=== PATIENT | male | born 1965 ===

== ENCOUNTER 2017-11-24 14:01 | Inpatient (IN) | payer MEDICAID ==
[2017-11-24 14:06] VITALS: BMI 29.8
[2017-11-24 14:41] LABS: BASO # 0.1 K/uL (0.0-0.2); BASO % 0.8 % (0.0-2.0); EOS % 0.3 % (0.0-4.0); HEMOGLOBIN 13.9 g/dL (12.0-18.0); LYMPH # 1.6 K/uL (1.0-4.3); LYMPH % 22.7 % (20.0-40.0); MEAN CELL VOLUME 87.2 fL (80.0-94.0); MEAN CORPUSCULAR HEMOGLOBIN 30.5 pg (27.0-31.0); MEAN PLATELET VOLUME 8.9 fL (7.2-11.7); MONO # 0.5 K/uL (0.0-0.8); MONO % 6.7 % (0.0-10.0); NEUT % 69.5 % (50.0-75.0); RBC 4.55 Mil/uL (4.40-5.90); RED CELL DISTRIBUTION WIDTH 13.7 % (11.5-14.5); WHITE BLOOD COUNT 7.1 K/uL (4.8-10.8)
[2017-11-24 14:48] LABS: ALB/GLOB RATIO 1.3 (1.0-2.1); ALBUMIN 3.8 g/dL (3.5-5.0); ALT/SGPT 109 U/L (21-72); AST/SGOT 128 U/L (17-59); BLOOD UREA NITROGEN 13 mg/dL (9-20); CALCIUM 7.9 mg/dl (8.6-10.4); GFR AFRICAN-AMERICAN > 60; GFR NON-AFRICAN AMERICAN > 60
[2017-11-24 15:37] LABS: URINE BILIRUBIN NEGATIVE (NEGATIVE); URINE BLOOD 1+ (NEGATIVE); URINE CLARITY Clear (Clear); URINE COLOR Straw (YELLOW); URINE GLUCOSE (UA) NORMAL (Normal); URINE LEUKOCYTE ESTERASE NEG Leu/uL (Negative); URINE NITRATE NEGATIVE (NEGATIVE); URINE PROTEIN NEGATIVE (NEGATIVE); URINE UROBILINOGEN NORMAL mg/dL (0.2-1.0)
[2017-11-24 15:45] LABS: ACETAMINOPHEN < 10.0 ug/mL (10.0-30.0); SALICYLATE < 1.0 mg/dL 1
[2017-11-24 15:56] LABS: BARBITURATES, UR NEGATIVE (NEGATIVE); BENZODIAZEPINES, UR NEGATIVE (NEGATIVE); OPIATES, UR NEGATIVE (NEGATIVE); PHENCYCLIDINE, UR NEGATIVE (NEGATIVE)
--- NOTE | 2017-11-24 17:04 | C.PDOC ---
History Of Present Illness 51 year old male is brought to the ED by EMS for public intoxication. Patient admits to alcohol, heroin, and crack use today. Patient is verbally abusive responds appropriately to painful stimulus. Patient does not have any signs or trauma. Time Seen by Provider: 11/24/17 15:18 Chief Complaint (Nursing): Psychiatric Evaluation History Per: Patient, EMS History/Exam Limitations: no limitations Onset/Duration Of Symptoms: Days Current Symptoms Are (Timing): Still Present Suicide/Self Injury Attempted (Context): None Modifying Factor(s): Alcohol, Other (Heroin) Associated Symptoms: Depression, Suicidal Thoughts, Suicidal Plan Involuntary Hold By: None Recent travel outside of the [place]: No Additional History Per: Patient, EMS Past Medical History Reviewed: Historical Data, Nursing Documentation, Vital Signs Vital Signs: Last Vital Signs Temp 98.8 F 11/24/17 14:06 Pulse 100 H 11/24/17 18:47 Resp 18 11/24/17 18:47 BP 111/57 L 11/24/17 18:47 Pulse Ox 100 11/24/17 18:47 - Medical History PMH: No Chronic Diseases Surgical History: No Surg Hx Family History: States: Unknown Family Hx - Social History Hx Alcohol Use: Yes Hx Substance Use: Yes ("HEROIN AND CRACK") - Immunization History Hx Tetanus Toxoid Vaccination: No Hx Influenza Vaccination: No Hx Pneumococcal Vaccination: No Review Of Systems Constitutional: Negative for: Fever, Chills Cardiovascular: Negative for: Chest Pain, Palpitations Respiratory: Negative for: Cough, Shortness of Breath Gastrointestinal: Negative for: Nausea, Vomiting, Abdominal Pain Skin: Negative for: Rash Neurological: Negative for: Weakness, Numbness Psych: Positive for: Depression, Suicidal ideation Physical Exam - Physical Exam Appears: Non-toxic, Combative, Other (Obese, white jessenia) Skin: Normal Color, Warm, Dry Head: Atraumatic, Normacephalic Eye(s): bilateral: Normal Inspection Nose: No Discharge, No Deformity Oral Mucosa: Moist Neck: Normal ROM, Supple Chest: Symmetrical Cardiovascular: Rhythm Regular, No Murmur Respiratory: Normal Breath Sounds, No Rales, No Rhonchi, No Wheezing Gastrointestinal/Abdominal: Soft, No Tenderness, No Guarding, No Rebound Extremity: Normal ROM, No Deformity, No Swelling Neurological/Psych: Oriented x3, Normal Speech, Normal Cognition Gait: Steady ED Course And Treatment - Laboratory Results Result Diagrams: 11/24/17 14:30 11/24/17 14:30 O2 Sat by Pulse Oximetry: 96 (On RA) Pulse Ox Interpretation: Normal Medical Decision Making Medical Decision Making: Impression : Public intoxication Plan: * Labs * UA * EKG pt retracts all suicidal ideation, denies other substance abuse aside from alcohol. d/w Crisis, ok to Detox. Disposition Doctor Will See Patient In The: Hospital Counseled Patient/Family Regarding: Studies Performed, Diagnosis - Disposition Disposition: HOSPITALIZED Disposition Time: 21:02 Condition: GOOD Forms: [facility] (Romanian) - Clinical Impression Clinical Impression: Alcohol abuse - Scribe Statement The provider has reviewed the documentation as recorded by the Scribe Daniel Meyer All medical record entries made by the Scribe were at my direction and personally dictated by me. I have reviewed the chart and agree that the record accurately reflects my personal performance of the history, physical exam, medical decision making, and the department course for this patient. I have also personally directed, reviewed, and agree with the discharge instructions and disposition.
[2017-11-24] MEDS ORDERED: Potassium Chloride 20 mEq/15 ml LIQ UD PO ONE (21:48)
[2017-11-25] MEDS: Multiple Vitamins Tab PO SCH (10:05)
--- NOTE | 2017-11-25 12:17 | CARD ---
APPROVED REPORT EKG Measurement Heart [id number] <Conclusion> Normal sinus rhythm Normal ECG
[2017-11-25] MEDS ORDERED: Benzocaine/Menthol (Cepacol) Lozenge MT PRN (14:40)
--- NOTE | 2017-11-25 14:51 | PCM.PSYCH ---
Initial Psychiatric Evaluation - Initial Psychiatric Evaluation Type of Admission: Voluntary Chief Complaint (in patient's own words): alcohol intoxication Patient's Reaction to Hospitalization: 51 year old Male brought to the ED for alcohol intoxication, admitted for alcohol detox. Patient is currently homeless due to recently undergoing a divorce. 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 In August he went back to visit his father in [place] who was recently diagnosed with Cancer. Upon arrival back, 3 weeks later, his did not allow him back in the house. He does not have any form of ID, clothing, or any personal belongings. He has been living in hotels the past 1-2 months. Patient reports he used to drink alcohol from his teen years up until the age of early thirties. He has remained sober for the past 20 years. In recent events, due to all the adversity the patient has been experiencing he relapsed and returned to drinking alcohol. Admitted to 1 bottle/ 1 L of hard liquor since he returned from [place] in August 2017. Admitted to nausea, tremors and seizures when he does not drink. His seizures have been unwitnessed due to occurring inside his hotel room. He reports standing and walking up on the floor, denied urinary or bowel incontinence, or tongue biting. Reported smoking 3-4 cigarettes a day accompanied with the alcohol he drinks daily. Past Medical History: Admitted to Hypertension, not currently on medication Past Psychiatric History: Alcohol Use Disorder Family History: Denied Current Medications: Active Medications Generic Name Dose Route Start Last Admin Trade Name Freq PRN Reason Stop Dose Admin Al Hydrox/Mg Hydrox/Simethicone 30 ml 11/24/17 22:59 Maalox 30 Ml PO TID PRN Indigestion / Heartburn Benzocaine/Menthol 1 ramiro 11/25/17 14:40 Cepacol Sore Throat MT Q4 PRN Sore Throat Clonidine HCl 0.1 mg 11/24/17 22:58 Catapres PO Q4H PRN Symptoms of alcohol withdrawl Folic Acid 1 mg 11/25/17 10:00 11/25/17 10:05 Folic Acid PO 1 mg DAILY MIGUE Administration Gabapentin 300 mg 11/25/17 10:00 11/25/17 10:22 Neurontin PO 300 mg BID MIGUE Administration Lorazepam 1 mg 11/24/17 22:58 Ativan PO Q4H PRN Symptoms of alcohol withdrawl Lorazepam 1 mg 11/24/17 23:00 11/25/17 14:13 Ativan PO 11/29/17 22:59 1 mg Q4H MIGUE Administration Taper Multivitamins 1 tab 11/25/17 10:00 11/25/17 10:05 Hexavitamin PO 1 tab DAILY MIGUE Administration Ondansetron HCl 4 mg 11/24/17 22:59 Zofran Tab PO Q8 PRN Nausea/Vomiting Thiamine HCl 100 mg 11/25/17 10:00 11/25/17 10:05 Vitamin B1 Tab PO 100 mg DAILY MIGUE Administration Trazodone HCl 50 mg 11/24/17 22:58 11/24/17 23:35 Desyrel PO 50 mg HS PRN Administration Insomnia Past Psychiatric History - Past Psychiatric History Pertinent Medical Hx (Current Medical&Sleep Prob, Allergies): Allergies Allergy/AdvReac Type Severity Reaction Status Date / Time No Known Allergies Allergy Unverified 11/24/17 14:05 Unobtainable 11/24/17 Review of Systems - Review of Systems All systems: reviewed and no additional remarkable complaints except - Psychiatric Psychiatric: Anxiety, Change in Appetite, Depression, Difficulty Concentrating, Hopelessness, Suicidal Ideation. absent: Auditory Hallucinations, Hallucinations, Homicidal Ideation, Irritability, Mood Swings, Visual Hallucinations, Tactile Hallucinations Mental Status Examination - Personal Presentation Personal Presentation: Looks stated age - Affect Affect: Depressed - Motor Activity Motor Activity: Calm - Reliability in Providing Information Reliability in Providing Information: Fair - Mood Mood: Depressed - Obsessions/Compulsions Obsessions: No Compulsions: No - Cognitive Functions Orientation: Person, Place, Situation, Time Judgement: Imparied, as evidence by: Poor judgement, Intact, as evidence by: Insight regarding need for hospitalization - Risk Risk: Suicidal - Limitations Limitations: Living alone DSM 5 DX - DSM 5 DSM 5 Diagnosis: Alcohol Use Disorder Alcohol Withdrawal Tobacco Use Disorder 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 - Recommended/Plan of Treatment Treatment Recommendations and Plan of Treatment: Alcohol use disorder, severe -CBT -Psychoeducation -Supportive therapy, individual therapy -Use CA for abstinence Alcohol withdrawal, uncomplicated -CBT -Psychoeducation -Supportive therapy, individual therapy -Librium when necessary -Start Librium taper -Start folic acid/thiamine/multivitamin Tobacco Use Disorder -Smoking Cessation -CBT -Psychoeducation -Supportive therapy, individual therapy -Use CA for abstinence 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 Buckley, Josefina Arnold DO, PGY-1
[2017-11-25] MEDS: Aluminum Hydroxide/Magnesium Hydroxide Susp (30 mL) PO PRN (18:57)
[2017-11-26] MEDS: Multiple Vitamins Tab PO SCH (10:45)
[2017-11-26] MEDS: Aluminum Hydroxide/Magnesium Hydroxide Susp (30 mL) PO PRN (22:26)
[2017-11-27] MEDS: Multiple Vitamins Tab PO SCH (09:08)
--- NOTE | 2017-11-27 15:16 | PCM.PYCHPN ---
Psychiatric Progress Note - Psychiatric Progress Note Patient seen today, length of contact: 18 min Patient Chief Complaint: "I need to go home soon" Problems Identified/Issues Discussed: The pt is seen, chart reviewed, case discussed with staff. The pt is compliant with medications and reports no side-effects. Symptoms are improving but needs more time to stabilize. After care discussed, support and psychoeducation given. He agreed to complete his detox Medication Change: Yes Medical Record Reviewed: Yes Mental Status Examination - Cognitive Function Orientation: Person, Place, Situation, Time Memory: Intact Attention: WNL Concentration: WNL Association: WNL Fund of Knowledge: WNL - Mood Mood: Depressed - Affect Affect: Constricted, Depressed - Speech Speech: Appropriate - Formal Thought Process Formal Thought Process: No Impairment - Suicidal Ideation Suicidal Ideation: No - Homicidal Ideation Homicidal Ideation: No Goal/Treatment Plan - Goal/Treatment Plan Need for Continued Stay: Discharge may exacerbated symptoms, Severe functional impairment Progress Toward Problem(s) and Goals/Treatment Plan: Continue detox As needed medications Gabapentin for augmentation All risks, benefits and alternatives of medications, including no medications, discussed and the patient understood and agreed. Attend groups and activities Supportive therapy and psychoeducation OK for abstinence CBT for relapse prevention
[2017-11-27] MEDS: Aluminum Hydroxide/Magnesium Hydroxide Susp (30 mL) PO PRN (19:09)
--- NOTE | 2017-11-27 23:19 | PCM.PYCHPN ---
Psychiatric Progress Note - Psychiatric Progress Note Patient seen today, length of contact: 16 min Patient Chief Complaint: "Not good" Problems Identified/Issues Discussed: The pt is seen, chart reviewed, case discussed with staff. Support given, CBT and PA used briefly No new symptoms reported, improving slowly and needs more time No SEs from medications, risks discussed. After care discussed He agreed that we call his Medication Change: Yes (detox changes daily) Medical Record Reviewed: Yes Mental Status Examination - Cognitive Function Orientation: Person, Place, Situation, Time Memory: Intact Attention: WNL Concentration: WNL Association: WNL Fund of Knowledge: WNL - Mood Mood: Depressed - Affect Affect: Depressed - Speech Speech: Appropriate - Formal Thought Process Formal Thought Process: No Impairment - Suicidal Ideation Suicidal Ideation: No - Homicidal Ideation Homicidal Ideation: No Goal/Treatment Plan - Goal/Treatment Plan Need for Continued Stay: Discharge may exacerbated symptoms, Severe functional impairment Progress Toward Problem(s) and Goals/Treatment Plan: Continue detox As needed medications Gabapentin for augmentation All risks, benefits and alternatives of medications, including no medications, discussed and the patient understood and agreed. Attend groups and activities Supportive therapy and psychoeducation PA for abstinence CBT for relapse prevention Encourage MAT Refer to rehab or IOP Attend self-help groups as well Estimated Date of D/C: 11/29/17
[2017-11-28] MEDS: Multiple Vitamins Tab PO SCH (09:10)
--- NOTE | 2017-11-28 13:33 | PCM.PYCHPN ---
Psychiatric Progress Note - Psychiatric Progress Note Patient seen today, length of contact: 18 min Patient Chief Complaint: "I am getting better" Problems Identified/Issues Discussed: The pt is seen, chart reviewed, case discussed with staff. Support given, CBT and AR used briefly No new symptoms reported, improving slowly and needs more time No SEs from medications, risks discussed. After care discussed - Our counselor is wrking on getting him in to a program and even likely to be helped by [facility] His did not answer phones, so he will contact police first and then go to her house with them Medication Change: Yes (detox changes daily) Medical Record Reviewed: Yes Mental Status Examination - Cognitive Function Orientation: Person, Place, Situation, Time Memory: Intact Attention: WNL Concentration: WNL Association: WNL Fund of Knowledge: WNL - Mood Mood: Depressed - Affect Affect: Constricted, Depressed - Speech Speech: Appropriate - Formal Thought Process Formal Thought Process: No Impairment - Suicidal Ideation Suicidal Ideation: No - Homicidal Ideation Homicidal Ideation: No Goal/Treatment Plan - Goal/Treatment Plan Need for Continued Stay: Discharge may exacerbated symptoms, Severe functional impairment Progress Toward Problem(s) and Goals/Treatment Plan: Continue detox As needed medications Gabapentin for augmentation All risks, benefits and alternatives of medications, including no medications, discussed and the patient understood and agreed. Attend groups and activities Supportive therapy and psychoeducation AR for abstinence CBT for relapse prevention Estimated Date of D/C: 11/29/17
[2017-11-28] MEDS: Aluminum Hydroxide/Magnesium Hydroxide Susp (30 mL) PO PRN (15:20)
--- NOTE | 2017-11-29 08:49 | PCM.PYCHDC ---
Mental Status Examination - Mental Status Examination Orientation: Person, Place, Situation, Time Memory: Intact Mood: Anxious Affect: Constricted Speech: Appropriate Attention: WNL Concentration: WNL Association: WNL Fund of Knowledge: WNL Formal Thought Process: No Impairment Suicidal Ideation: No Current Homicidal Ideation?: No Discharge Summary - Discharge Note Reason for Hospitalization: Alcohol detox Consultations:: List each consultation separately and include: 1. Reason for request. 2. Findings. 3. Follow-up Summary of Hospital Course include:: 1. Description of specific treatment plan utilized for patients during their course of treatmen. 2. Summarize the time- course for resolution of acute symptoms and/or regressed behaviors. 3. Describe issues identified and worked on during hospitalization. 4. Describe medication utilized. 5. Describe medical problems identified and treated. 6. Reassessment of suicide risk Summary of Hospital Course: The pt was admitted and started on treatment with psychotherapy, support, psychoeducation and medications. FL and CBT used. The pt attended groups and activities, as well as milieu therapy. All the risks and benefits of medications are discussed and the patient understood and agreed. The pt improved with the treatments provided. After care discussed with the patient. He was not open to options b/c of the uncertainty on where he will live and how he will get his "stuff" incl. ID, from his . He agreed to go to AA meetings. - Final Diagnosis (DSM 5) Condition upon Discharge: IMPROVED DSM 5: Alcohol Use Disorder - severe Alcohol Withdrawal Tobacco Use Disorder - severe Depressive d/o - unspecified Disposition: HOME/ ROUTINE Follow-up Treatment Plan: Continue below medications after discharge. Follow after care plan as discussed: AA, consider IOP, get help from [facility] too. Go to police with regards to dealing with who locked him out and using his car, not giving his clothes, ID, etc. Use relapse prevention skills Return to ER or call 911 if suicidal, homicidal or symptoms relapse. Stay away from stress, alcohol and drugs. See primary doctor regularly and get labs. Prescriptions/Medication Reconciliation: Gabapentin [Neurontin] 300 mg PO BID #60 cap traZODone [Desyrel] 50 mg PO HS PRN #30 tab PRN Reason: Insomnia - Smoking Cessation Smoking Cessation Medication prescribed: No - Antipsychotic Medications Pt discharged on 2 or more routine antipsychotic medications: No
[2017-11-29] MEDS: Multiple Vitamins Tab PO SCH (09:35)
[2017-11-29 09:58] VITALS: BP 120/74; PULSE 100; RESP 20; TEMP 97.6; O2SAT 100
[2017-11-29] MEDS: Aluminum Hydroxide/Magnesium Hydroxide Susp (30 mL) PO PRN (10:32)
== END 2017-11-29 10:33 | disposition home or self-care (01) | DRG 897 ==
LOC: C.ER 14:01 → C.7D 20:59
PROVIDERS: ADMIT Psychiatry & Neurology Psychiatry; ATTEND Psychiatry & Neurology Psychiatry
PROC: HZ2ZZZZ Detoxification Services for Substance Abuse Treatment (ICD-10-PCS; principal; 2017-11-24)
DX: F10.239 Alcohol dependence with withdrawal, unspecified (principal); F32.9 Major depressive disorder, single episode, unspecified; I10 Essential (primary) hypertension; Z72.0 Tobacco use